=== PATIENT | female | born 1930 | race Caucasian/White ===

== ENCOUNTER 2021-05-16 17:51 | Outpatient (CLI) | payer MEDICARE, BC | END 2021-05-16 17:52 | disposition critical access hospital (66) | LOC: EMS 17:51 | DX: R42 Dizziness and giddiness (principal); R29.810 Facial weakness; I10 Essential (primary) hypertension | CPT/HCPCS: A0425; A0427 ==

== ENCOUNTER 2021-05-16 18:15 | Inpatient (IN) | payer MEDICARE, BC ==
--- NOTE | 2021-05-16 18:24 | ED Physician Documentation ---
PD HPI FOCAL NEURO - Stated complaint Stated Complaint: DIZZY/VERTIGO - History obtained from History obtained from: EMS - History of Present Illness Timing - details: Abrupt onset Weakness: Face, Arm, Hand, Leg, Foot, Left Numbness: No: Face, Arm, Hand, Leg, Foot, Right, Left, Other Contributing factors: positive: Anticoagulated, Atrial fibrillation Baseline status: positive: A&OX3, ambulatory, indep Recently seen: Not recently seen - Additional information Additional information: Patient is an 89-year-old female brought in by EMS for dizziness that started about an hour prior to arrival. She was at a restaurant with her family. EMS noticed a left-sided facial droop as well. Family did not notice this. Patient also appears to be having weakness of the left arm and leg. Patient lives in [place] and is visiting does have a history of atrial fibrillation and is on Eliquis. Unknown CODE STATUS. Review of Systems Unable to obtain: AMS, Confused PD PAST MEDICAL HISTORY - Past Medical History Cardiovascular: Hypertension, High cholesterol - Present Medications Home Medications: Ambulatory Orders Medication Instructions Recorded Confirmed Apixaban [Eliquis] 2.5 mg PO BID 05/16/21 05/16/21 Atorvastatin [Lipitor] 40 mg PO DAILY 05/16/21 05/16/21 Spironolactone [Aldactone] 12.5 mg PO DAILY 05/16/21 05/16/21 Torsemide 40 mg PO DAILY 05/16/21 05/16/21 Torsemide 60 mg PO QPM 05/16/21 05/16/21 carvediloL [Coreg] 12.5 mg PO BID 05/16/21 05/16/21 - Allergies Allergies/Adverse Reactions: Allergies Allergy/AdvReac Type Severity Reaction Status Date / Time No Known Drug Allergies Allergy Verified 05/16/21 18:23 - Living Situation Living Arrangement: reports: At home - Social History Does the pt have substance abuse?: No PD ED PE NORMAL - Vitals Vital signs reviewed: Yes - General General: No acute distress, Well developed/nourished, Other (Listing to the left, holding an emesis bag) - HEENT HEENT: PERRL, EOMI, Other (Mild left facial droop) - Neck Neck: Supple, no meningeal sign - Cardiac Cardiac: RRR - Respiratory Respiratory: No respiratory distress, Clear bilaterally - Abdomen Abdomen: Soft, Non tender, Non distended - Derm Derm: Warm and dry - Extremities Extremities: No calf tenderness / cord - Neuro Neuro: Other (Alert, oriented to person and place) Eye Opening: Spontaneous Motor: Obeys Commands Verbal: Confused GCS Score: 14 NIHSS - Time Time: 18:20 - Level of Consciousness Level of consciousness: (1) Not alert, but arousable by minor stimulation to obey, or answer LOC Questions: (2) Answers neither correct LOC Commands: (1) Performs one correctly - Gaze Best Gaze: (0) Normal - Visual Visual: (0) No loss - Facial Palsy Facial Palsy: (2) Partial paralysis - Motor Arms (both separate) Motor Arm (right): (0) No drift Motor Arm (left): (1) Drift - Motor Legs (both separate) Motor Leg (right): (0) No drift Motor Leg (left): (1) Drift - Limb Ataxia Limb Ataxia: (2) Present in 2 limbs - Sensory Sensory: (0) Normal - Best Language Best Language: (1) [id number] - Dysarthria Dysarthria: (0) Normal - Extinction and Inattention (formally neg Extinction and inattention: (0) No abnormality - Total Score/Results Total Score/Result: 11 Results - Vitals Vitals: Vital Signs - 24 hr 05/16/21 05/16/21 05/16/21 18:23 18:56 19:21 Temperature 36.6 C Heart Rate 100 91 91 Respiratory 18 22 20 Rate Blood Pressure 200/100 H 194/95 H 192/100 H O2 Saturation 93 98 97 05/16/21 05/16/21 05/16/21 19:51 20:21 20:30 Temperature Heart Rate 91 90 84 Respiratory 21 20 19 Rate Blood Pressure 185/85 H 190/93 H 192/88 H O2 Saturation 94 97 94 Oxygen O2 Source Room air - EKG (time done) 1847 Rate: Rate (enter#) (92) Rhythm: NSR [place]: Normal Intervals: Normal [place] QRS: LVH Ischemia: Q waves - Labs Labs: Laboratory Tests 05/16/21 05/16/21 05/16/21 18:45 18:56 18:56 WBC 4.5 L RBC 3.97 L Hgb 9.2 L Hct 30.0 L MCV 75.6 L MCH 23.2 L MCHC 30.7 L RDW 18.8 H Plt Count 156 MPV 8.5 Neut # (Auto) 3.2 Lymph # (Auto) 0.8 L Lamb # (Auto) 0.4 Eos # (Auto) 0.1 Baso # (Auto) 0.0 Absolute Nucleated RBC 0.00 Nucleated RBC % 0.0 PT 16.8 H INR 1.5 H Sodium Potassium Chloride Carbon Dioxide Anion Gap BUN Creatinine Estimated GFR (MDRD) Glucose POC Whole Bld Glucose 147 H Calcium Total Bilirubin AST ALT Alkaline Phosphatase Total Protein Albumin Globulin Albumin/Globulin Ratio Lipase Nasal Adenovirus (PCR) Nasal B. parapertussis DNA (PCR) Nasal Coronavir 229E PCR Nasal Coronavir HKU1 PCR Nasal Coronavir NL63 PCR Nasal Coronavir OC43 PCR Nasal Enterovir/Rhinovir PCR Nasal Influenza B PCR Nasal Influenza A PCR Nasal Parainfluen 1 PCR Nasal Parainfluen 2 PCR Nasal Parainfluen 3 PCR Nasal Parainfluen 4 PCR Nasal RSV (PCR) Nasal B.pertussis DNA PCR Nasal C.pneumoniae (PCR) Collins Human Metapneumo PCR Nasal M.pneumoniae (PCR) Nasal SARS-CoV-2 (PCR) 05/16/21 05/16/21 18:56 20:16 WBC RBC Hgb Hct MCV MCH MCHC RDW Plt Count MPV Neut # (Auto) Lymph # (Auto) Lamb # (Auto) Eos # (Auto) Baso # (Auto) Absolute Nucleated RBC Nucleated RBC % PT INR Sodium 135 Potassium 3.8 Chloride 103 Carbon Dioxide 21 Anion Gap 11.0 BUN 47 H Creatinine 1.7 H Estimated GFR (MDRD) 28 L Glucose 145 H POC Whole Bld Glucose Calcium 9.0 Total Bilirubin 0.7 AST 28 ALT 19 Alkaline Phosphatase 159 H Total Protein 8.1 Albumin 3.3 Globulin 4.8 H Albumin/Globulin Ratio 0.7 L Lipase 44 Nasal Adenovirus (PCR) NOT DETECTED Nasal B. parapertussis DNA (PCR) NOT DETECTED Nasal Coronavir 229E PCR NOT DETECTED Nasal Coronavir HKU1 PCR NOT DETECTED Nasal Coronavir NL63 PCR NOT DETECTED Nasal Coronavir OC43 PCR NOT DETECTED Nasal Enterovir/Rhinovir PCR NOT DETECTED Nasal Influenza B PCR NOT DETECTED Nasal Influenza A PCR NOT DETECTED Nasal Parainfluen 1 PCR NOT DETECTED Nasal Parainfluen 2 PCR NOT DETECTED Nasal Parainfluen 3 PCR NOT DETECTED Nasal Parainfluen 4 PCR NOT DETECTED Nasal RSV (PCR) NOT DETECTED Nasal B.pertussis DNA PCR NOT DETECTED Nasal C.pneumoniae (PCR) NOT DETECTED Collins Human Metapneumo PCR NOT DETECTED Nasal M.pneumoniae (PCR) NOT DETECTED Nasal SARS-CoV-2 (PCR) NOT DETECTED - Rads (name of study) head CT Radiology: Final report received, EMP read contemporaneously, See rad report (No acute abnormality) PD MEDICAL DECISION MAKING - ED course Complexity details: reviewed results, re-evaluated patient, considered differential, d/w patient, d/w family, d/w employee relations consultant ED course: 89-year-old female, initial history was limited, but did appear to be in a TPA window. She is on Eliquis. Dr. Mueller, neurology was consulted via telestroke. States that she would not be a interventional TPA candidate or a TPA candidate. Does not recommend angiograms at this time as they would not record changer. Family states that she is DNR. There is a question on if she has metastatic adenocarcinoma with mets to the liver, had considered hospice and palliative care recently according to notes in [facility] that the neurologist was reading. We will admit the patient for an MRI in the morning to see where the stroke occurred for prognostic value. Discussed the case with Dr. Frost, hospitalist who accepts This document was made in part using voice recognition software. While efforts are made to proofread this document, sound alike and grammatical errors may occur. Departure - Departure Disposition: [facility] Clinical Impression: Stroke-like symptoms Condition: Stable Discharge Date/Time: 05/16/21 22:09
--- NOTE | 2021-05-16 18:58 | CT Report ---
PROCEDURE: Head W/O Stroke Protocol INDICATIONS: L facial droop, falling TECHNIQUE: Noncontrast 4.5 mm thick angled axial sections acquired from the foramen magnum to the vertex, with c oronal reformats. For radiation dose reduction, the following was used: automated exposure control, adjustment of mA and/or kV according to patient size. COMPARISON: FINDINGS: Image quality: Excellent. CSF spaces: Basal cisterns are patent. No extra-axial fluid collections. Ventricles are symmetric in size and shape. Brain: No midline shift. No intracranial masses or hemorrhage. There is mild generalized age-relate d cerebral and cerebellar volume loss. Scattered hypodensities in the subcortical and periventricular white matter are most commonly seen in the setting of chronic microvascular ischemic changes. No foc al loss of white matter differentiation is identified. Intracranial atherosclerotic calcifications ar e present. Skull and face: Calvarium and visualized facial bones are intact, without suspicious lesions. Sinuses: The visualized paranasal sinuses are clear. There is opacification of the right mastoid air cells. No mass is seen in the included right nasopharynx. IMPRESSION: 1. No acute intracranial abnormality. 2. Mild to moderate chronic microvascular ischemic changes. Mild age-related cerebral volume loss. 3. Opacification of the right mastoid air cells. Recommend correlation for mastoiditis. Findings were discussed with the referring physician, Dr. Salas, by telephone on 05/16/2021 at 6:55 P M. This study fulfills neurological imaging criteria for inclusion or exclusion of acute stroke therapie s based on available published neurological imaging guidelines. Reviewed by: Tru Yousif MD on 05/16/2021 6:57 PM PDT Approved by: Tru Yousif MD on 05/16/2021 6:57 PM PDT Station ID: [id number]
[2021-05-16 19:01] LABS: BASOPHILS % (AUTO) 0.7 %; EOSINOPHILS # (AUTO) 0.1 10^3/uL (0.0-0.7); EOSINOPHILS % (AUTO) 3.1 %; HGB - HEMOGLOBIN 9.2 g/dL (12.0-16.0); LYMPHOCYTES # (AUTO) 0.8 10^3/uL (1.5-3.5); LYMPHOCYTES % (AUTO) 17.3 %; MEAN CORPUSCULAR HEMOGLOBIN 23.2 pg (27.0-31.0); MEAN CORPUSCULAR HGB CONC 30.7 g/dL (32.0-36.0); MEAN CORPUSCULAR VOLUME 75.6 fL (81.0-99.0); MEAN PLATELET VOLUME 8.5 fL (7.9-10.8); MONOCYTES # (AUTO) 0.4 10^3/uL (0.0-1.0); MONOCYTES % (AUTO) 7.7 %; NEUTROPHILS # (AUTO) 3.2 10^3/uL (1.5-6.6); NEUTROPHILS % (AUTO) 70.8 %; PLT - PLATELET COUNT 156 10^3/uL (130-450); RED BLOOD COUNT 3.97 10^6/uL (4.20-5.40); RED CELL DISTRIBUTION WIDTH 18.8 % (12.0-15.0); WHITE BLOOD COUNT 4.5 x10^3/uL (4.8-10.8)
[2021-05-16 19:15] LABS: ALBUMIN 3.3 g/dL (3.2-5.5); ALBUMIN/GLOBULIN RATIO 0.7 (1.0-2.2); BILIRUBIN,TOTAL 0.7 mg/dL (0.2-1.0); CREATININE 1.7 mg/dL (0.4-1.0); POTASSIUM 3.8 mmol/L (3.5-5.0); TOTAL PROTEIN 8.1 g/dL (6.7-8.2)
[2021-05-16 19:18] LABS: INR 1.5 (0.8-1.2); PT - PROTHROMBIN TIME 16.8 secs (9.9-12.6)
[2021-05-16 21:14] LABS: B. PARAPERTUSSIS- RESP PCR PAN NOT DETECTED; B. PERTUSSIS- RESP PCR PANEL NOT DETECTED; C. PNEUMONIAE- RESP PCR PANEL NOT DETECTED; CORONAVIRUS 229E-RESP PCR NOT DETECTED; CORONAVIRUS HKU1-RESP PCR NOT DETECTED; CORONAVIRUS NL63-RESP PCR NOT DETECTED; CORONAVIRUS OC43-RESP PCR NOT DETECTED; HUMAN METAPNEUMOVIRUS NOT DETECTED; INFLUENZA A- RESP PCR PANEL NOT DETECTED; INFLUENZA B - RESP PCR PANEL NOT DETECTED; M. PNEUMONIAE- RESP PCR PANEL NOT DETECTED; PARAINFLUENZA VIRUS 1 NOT DETECTED; PARAINFLUENZA VIRUS 2 NOT DETECTED; PARAINFLUENZA VIRUS 3 NOT DETECTED; PARAINFLUENZA VIRUS 4 NOT DETECTED; RHINOVIRUS/ENTEROVIRUS NOT DETECTED; RSV- RESP PCR PANEL NOT DETECTED; SARS-CoV-2 -RESP PCR PANEL NOT DETECTED
[2021-05-16] MEDS ORDERED: ACETAMINOPHEN 325 MG TABLET PO PRN (21:16)
[2021-05-16] MEDS ORDERED: SODIUM CHLORIDE FLUSH 0.9% 10 ML SYRINGE IVP PRN (21:16)
[2021-05-16] MEDS ORDERED: ONDANSETRON 4 MG/2 ML VIAL IVP PRN (21:16)
--- NOTE | 2021-05-16 21:42 | HISTORY & PHYSICAL EXAMINATION ---
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 Medical records are not available therefore patient's history and background was described by her daughter. The patient presented to [facility] ER by ambulance around 5:30 PM with focal neurologic abnormalities/likely with cerebrovascular accident. The daughter reported that they had a day trip, drove to [facility] [place] came over by [place]. They were having dinner around 5:30 PM when the patient was noted fainting, she had decreased level of consciousness. She was not able to swallow water, was leaning to the left, became clammy and had very noticeable left facial droop and left-sided arm and leg weakness. Upon presentation to the ER NIH stroke scale was 11. CT scan of the brain did not show acute abnormality. There were laboratory abnormalities which are included below. Case was discussed with covering teleneurologist who recommended admission for stroke work-up which would include MRI and echocardiogram. No CT angiography was recommended as the patient would not be a candidate for any intervention based on her background, anticoagulation and history. Advance care planning discussion was started. Patient's background, chronic medical problems, functional status, current symptoms and work-up were discussed in detail. Patient's primary decision maker is her daughter who was at the bedside. She is an recycling technician and understood the context. She stated that her mother should be treated mainly according to comfort. She wishes no escalation of the care and details of care plan are listed at assessment and plan. Past medical history: Family provided past medical history, no medical records available Hyperlipidemia Hypertension Atrial fibrillation Eliquis anticoagulation for A. 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 Allergies Allergy/AdvReac Type Severity Reaction Status Date / Time No Known Drug Allergies Allergy Verified 05/16/21 18:23 Outpatient medications: Apixaban [Eliquis] 2.5 mg PO BID 05/16/21 Atorvastatin [Lipitor] 40 mg PO DAILY 05/16/21 Spironolactone [Aldactone] 12.5 mg PO DAILY 05/16/21 Torsemide 40 mg PO DAILY 05/16/21 Torsemide 60 mg PO QPM 05/16/21 carvediloL [Coreg] 12.5 mg PO BID 05/16/21 Family history: Patient cannot recall chronic medical conditions in first-degree relatives Social history and functional status: The patient lives with family members, she ambulates with a walker; her daughter is an recycling technician and she understands context of medical care and decision making. They came to [facility] to have a day trip, they traveled from [place]. As baseline the patient requires assistance from family with most activities however she could do basic ADLs such as dressing and eating. Gets some health help with bathing. CODE STATUS: DNR/ Comfort focused care Review of symptoms: 12 point review done, pertinent positives and negatives listed above at history present illness, there was no additional positive. Vital Signs - 8 hr 05/16/21 05/16/21 05/16/21 18:23 18:56 19:21 Temperature 36.6 C Heart Rate 100 91 91 Heart Rate [ Radial] Respiratory 18 22 20 Rate Blood Pressure 200/100 H 194/95 H 192/100 H Blood Pressure [Right Brachial artery] O2 Saturation 93 98 97 Physical exam: General: Well-developed frail elderly female, laying in bed without acute distress, daughter at bedside HEENT: Dry oral mucosa Respiratory: No increased work of breathing, comfortable on supplemental oxygen; good air entry throughout, however gurgly cough during the exam CVS: S1, S2, regular rate and rhythm at the time of my exam Abdomen: Benign abdomen, bowel tones present, nontender, nondistended Neurologic: Left-sided facial droop involving the entire face from the forehead to the chin, left-sided weakness however could move all 4 extremities against gravity, slow speech Psych: Lethargic, cooperative Lymph: No edema Skin: Pallor Musculoskeltal: Thin, frail, with visible ribs and temporal wasting, no fat pads Laboratories and imaging reviewed per electronic medical record. Laboratory Tests 05/16/21 05/16/21 05/16/21 18:45 18:56 18:56 WBC 4.5 L RBC 3.97 L Hgb 9.2 L Hct 30.0 L MCV 75.6 L MCH 23.2 L MCHC 30.7 L RDW 18.8 H Plt Count 156 MPV 8.5 Neut # (Auto) 3.2 Lymph # (Auto) 0.8 L Harney # (Auto) 0.4 Eos # (Auto) 0.1 Baso # (Auto) 0.0 Absolute Nucleated RBC 0.00 Nucleated RBC % 0.0 PT 16.8 H INR 1.5 H Sodium Potassium Chloride Carbon Dioxide Anion Gap BUN Creatinine Estimated GFR (MDRD) Glucose POC Whole Bld Glucose 147 H Calcium Total Bilirubin AST ALT Alkaline Phosphatase Total Protein Albumin Globulin Albumin/Globulin Ratio Lipase Nasal Adenovirus (PCR) Nasal B. parapertussis DNA (PCR) Nasal Coronavir 229E PCR Nasal Coronavir HKU1 PCR Nasal Coronavir NL63 PCR Nasal Coronavir OC43 PCR Nasal Enterovir/Rhinovir PCR Nasal Influenza B PCR Nasal Influenza A PCR Nasal Parainfluen 1 PCR Nasal Parainfluen 2 PCR Nasal Parainfluen 3 PCR Nasal Parainfluen 4 PCR Nasal RSV (PCR) Nasal B.pertussis DNA PCR Nasal C.pneumoniae (PCR) Collins Human Metapneumo PCR Nasal M.pneumoniae (PCR) Nasal SARS-CoV-2 (PCR) 05/16/21 05/16/21 18:56 20:16 WBC RBC Hgb Hct MCV MCH MCHC RDW Plt Count MPV Neut # (Auto) Lymph # (Auto) [place]ney # (Auto) Eos # (Auto) Baso # (Auto) Absolute Nucleated RBC Nucleated RBC % PT INR Sodium 135 Potassium 3.8 Chloride 103 Carbon Dioxide 21 Anion Gap 11.0 BUN 47 H Creatinine 1.7 H Estimated GFR (MDRD) 28 L Glucose 145 H POC Whole Bld Glucose Calcium 9.0 Total Bilirubin 0.7 AST 28 ALT 19 Alkaline Phosphatase 159 H Total Protein 8.1 Albumin 3.3 Globulin 4.8 H Albumin/Globulin Ratio 0.7 L Lipase 44 Nasal Adenovirus (PCR) NOT DETECTED Nasal B. parapertussis DNA (PCR) NOT DETECTED Nasal Coronavir 229E PCR NOT DETECTED Nasal Coronavir HKU1 PCR NOT DETECTED Nasal Coronavir NL63 PCR NOT DETECTED Nasal Coronavir OC43 PCR NOT DETECTED Nasal Enterovir/Rhinovir PCR NOT DETECTED Nasal Influenza B PCR NOT DETECTED Nasal Influenza A PCR NOT DETECTED Nasal Parainfluen 1 PCR NOT DETECTED Nasal Parainfluen 2 PCR NOT DETECTED Nasal Parainfluen 3 PCR NOT DETECTED Nasal Parainfluen 4 PCR NOT DETECTED Nasal RSV (PCR) NOT DETECTED Nasal B.pertussis DNA PCR NOT DETECTED Nasal C.pneumoniae (PCR) NOT DETECTED Collins Human Metapneumo PCR NOT DETECTED Nasal M.pneumoniae (PCR) NOT DETECTED Nasal SARS-CoV-2 (PCR) NOT DETECTED Assessment and plan: Active issues/diagnoses Focal neurologic deficits secondary to cerebrovascular accident or metastatic brain disease Hypertension Aspiration risk Renal failure, no baseline creatinine available Paroxysmal atrial fibrillation Therapeutic anticoagulation on Eliquis Advanced age, multiple chronic medical problems/DO NOT RESUSCITATE CODE STATUS with comfort focused care Recent work-up for adenocarcinoma of the colon raise the possibility of liver metastasis Anemia/neutropenia/coagulopathy/on Eliquis anticoagulation/no bleeding complication or history reported Plan and orders: Admitted as inpatient Permissive hypertension however restarting home dose of Coreg as the benefit to continue beta-davi to avoid A. fib RVR overweighs benefit of higher blood pressures, will aim to have a blood pressure goal around 160s Nursing swallow screen and dysphagia diet overnight; patient and daughter understand the aspiration risk, due to CODE STATUS limitation they request to continue with diet and have swallow evaluation completed Supplemental oxygen IV hydration, hold diuretics Regarding further work-up which was recommended by teleneurology, the daughter stated that they would not want to have repeat echocardiogram as the patient had several echoes in the past, regarding MRI as there might not be therapeutic consequence due to CODE STATUS limitation, for now the daughter requests not to order an MR; she will discuss with other family members whether they wish to perform MRI with diagnostic purpose on the second hospital day It was discussed that having an MRI of the brain to decide whether the patient had a stroke or has brain metastasis would provide valuable information, which might help with decision-making Regarding CODE STATUS goals of care and level of care per our discussion patient will be admitted to receive nursing care, swallow evaluation, PT OT evaluation and help with discharge planning, primary goal will be comfort focused care, therefore no telemetry monitoring will be ordered Regarding therapeutic anticoagulation on Eliquis the patient specifically requested to continue with that, if she would have brain metastasis from colon cancer at some point continuing full dose anticoagulation might be more risk than benefit, this issue was discussed and for now the daughter and the patient wanted us to continue Eliquis Bleeding risk was discussed in light of renal failure, malnutrition, brain abnormality, in the context of comfort care, at some point anticoagulation should be discontinued as the bleeding risk will overweigh the benefit DNR In light of anemia and therapeutic anticoagulation will check stool for occult blood Attestation: I certify that the patient meets inpatient criteria based on the admission diagnosis, and the above assessment, findings and plan; she is expected to be hospitalized for more than 48 hours however to discharge or transfer to other facility within less than 96 hours. Time: 65 minutes spent on admission, level 3 visit
[2021-05-16] MEDS ORDERED: D5NS W IV SCH (22:00)
[2021-05-16] MEDS ORDERED: KCL IV SCH (22:00)
[2021-05-17] MEDS ORDERED: METOPROLOL 5 MG/5 ML VIAL IVP STA (00:09)
[2021-05-17] MEDS: carvediloL 12.5 MG TABLET PO SCH ×3 (00:13→20:53)
[2021-05-17] MEDS: SODIUM CHLORIDE FLUSH 0.9% 10 ML SYRINGE IVP SCH ×3 (00:30→16:59)
[2021-05-17 04:51] LABS: BASOPHILS % (AUTO) 0.2 %; EOSINOPHILS % (AUTO) 0.2 %; HCT - HEMATOCRIT 31.5 % (37.0-47.0); HGB - HEMOGLOBIN 9.4 g/dL (12.0-16.0); LYMPHOCYTES # (AUTO) 0.7 10^3/uL (1.5-3.5); LYMPHOCYTES % (AUTO) 16.7 %; MEAN CORPUSCULAR HEMOGLOBIN 22.7 pg (27.0-31.0); MEAN CORPUSCULAR HGB CONC 29.8 g/dL (32.0-36.0); MEAN CORPUSCULAR VOLUME 76.1 fL (81.0-99.0); MEAN PLATELET VOLUME 8.7 fL (7.9-10.8); MONOCYTES # (AUTO) 0.2 10^3/uL (0.0-1.0); NEUTROPHILS # (AUTO) 3.3 10^3/uL (1.5-6.6); NEUTROPHILS % (AUTO) 77.4 %; PLT - PLATELET COUNT 150 10^3/uL (130-450); RED BLOOD COUNT 4.14 10^6/uL (4.20-5.40); RED CELL DISTRIBUTION WIDTH 18.9 % (12.0-15.0); WHITE BLOOD COUNT 4.2 x10^3/uL (4.8-10.8)
[2021-05-17 04:58] LABS: CALCIUM 9.1 mg/dL (8.5-10.3); CREATININE 1.6 mg/dL (0.4-1.0); POTASSIUM 4.1 mmol/L (3.5-5.0)
[2021-05-17 07:39] LABS: BILIRUBIN,URINE NEGATIVE (NEGATIVE); GLUCOSE, URINE (UA) NEGATIVE (NEGATIVE); KETONES,URINE (UA) NEGATIVE (NEGATIVE); LEUKOCYTE ESTERASE, URINE LARGE (NEGATIVE); NITRITE,URINE NEGATIVE (NEGATIVE); OCCULT BLOOD,URINE LARGE (NEGATIVE); PH,URINE 8.5 PH (5.0-7.5); PROTEIN,URINE 100 mg/dL (NEGATIVE); UROBILINOGEN,URINE 0.2 (NORMAL) E.U./dL (NORMAL)
[2021-05-17 07:40] LABS: CLARITY,URINE CLOUDY (CLEAR)
[2021-05-17 07:53] LABS: AMORPHOUS SEDIMENT,UR Moderate /LPF; BACTERIA,URINE Many /HPF (None Seen); RBC,URINE TNTC /HPF (0-5); SQUAMOUS EPITHELIAL CELL,UR NONE SEEN (<= Few); WBC,URINE >25 /HPF (0-5)
[2021-05-17] MEDS ORDERED: carvediloL 12.5 MG TABLET PO SCH (09:00)
--- NOTE | 2021-05-17 09:10 | PHARMACY PROGRESS NOTE ---
- Best Possible Medication History Admit Date and Time: 05/16/212115 Processed by: Pharmacy Medication History completed: Yes Patient Interview: Pt unable to participate Secondary Source(s): Pharmacy records, Insurance records As the person ultimately responsible for medication therapy, providers are able to order a medication from an existing home medication list in [facility] via the "Reconcile Routine" prior to Confirmation of that medication by arch support technician. Such practice is discouraged except when the physician, in their clinical judgment, deems that a medical need exists for a medication without regard to previous use.
[2021-05-17] MEDS ORDERED: GADOBUTROL 7.5 MMOL/7.5 ML VIAL ONE (12:41)
[2021-05-17] MEDS: GADOBUTROL 7.5 MMOL/7.5 ML VIAL IVP ONE (12:50)
[2021-05-17] MEDS: APIXABAN 2.5 MG TABLET PO SCH ×2 (13:54→20:53)
[2021-05-17] MEDS: ATORVASTATIN 40 MG TABLET PO SCH (13:54)
--- NOTE | 2021-05-17 14:54 | MRI Report ---
PROCEDURE: Brain W/WO INDICATIONS: brain mets CONTRAST: IV CONTRAST: Gadavist ml: 4 TECHNIQUE: Noncontrast axial T1 spin echo, axial T2 fast spin echo, sagittal and axial FLAIR, coronal T2 fast sp in echo, axial gradient echo, axial diffusion and ADC through the brain. After the administration of contrast, axial and coronal T1 spin echo with fat saturation through the brain. COMPARISON: Head CT dated 05/16/2021. FINDINGS: Image quality: Excellent. CSF spaces: Basal cisterns are patent. No extra-axial fluid collections. Ventricles are normal in size and shape. Brain: Diffusion-weighted images demonstrate a moderate acute inferior left cerebellar hemisphere in farct, consistent with a posterior inferior cerebellar artery distribution infarct. There is addition ally infarct extending into the left lateral medulla. Associated cytotoxic edema is noted. No acute h emorrhage. No mass is identified. No midline shift. No intracranial bleeds or masses. No abnormal i ntracranial enhancement. There is cerebral volume loss for age. There is severe periventricular whi te matter chronic small vessel ischemic change. The brainstem appears normal. No chronic ischemic i nsults. Normal intravascular flow voids are present. Skull and face: Calvarial marrow is normal in signal. Orbits appear normal. Sinuses: Sinuses and mastoids appear clear. IMPRESSION: 1. Age-related volume loss and severe small vessel ischemic change. 2. 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 The cere bellar infarct is in the left posterior inferior cerebellar artery territory. This is nonhemorrhagic. There is subglottic edema without significant mass effect on the ventricular system. 3. No evidence of hemorrhage. Reviewed by: Hardy Tovar MD on 05/17/2021 2:53 PM PDT Approved by: Hardy Tovar MD on 05/17/2021 2:53 PM PDT Station ID: [id number]
--- NOTE | 2021-05-17 16:31 | PROVIDER PROGRESS NOTE ---
Subjective - Prog Note Date Prog Note Date: 05/17/21 Prog Note Time: 16:27 - Subjective Subjective: She has been more alert today. Over the course of the day she has been evaluated by speech pathology and she is choking on water. As such she is n.p.o. for right now. The daughter who is with her and is her advocate is expressing they do desire further treatment at this point in time. Everything we do is a [id number] request for the family. They did not want an echocardiogram. But they did allow an MRI. Because she is no longer able to swallow, they want a PEG feeding tube in place. They want this in place before she is discharged. As soon as the PEG is placed they would like to take her home. They would like home health with physical t herapy, speech therapy and Occupational Therapy. If the patient cannot get a PEG tube here, they want her transferred to [facility] and have given me the number of Shanika Shelton Her oncologist. I did call Dr. 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 As far as her office is concerned, she is no longer getting active treatment. And they were sorry but would not be able to help in this current episode of care at this time. As such I went back to the daughter to explain the doctor Would not be able to facility transfer to . The daughter asked again if mom can get a PEG tube befor discharge here and I contacted Dr. Renetta Castano says that she is willing to put in a PEG tube tomorrow at 3:00 in the afternoon. The MRI does confirm an acute infarct involving the inferior left cerebellar hemisphere in the left lateral medulla. The cerebellar infarct is in the left posterior inferior cerebellar artery distribution. Nonhemorrhagic. Subglottic edema without significant mass-effect on the ventricular system. Current Medications - Current Medications Current Medications: Active Medications Acetaminophen (Acetaminophen 325 Mg Tablet) 650 mg PO Q4HR PRN PRN Reason: Pain 1 to 4 Apixaban (Apixaban 2.5 Mg Tablet) 2.5 mg PO BID [facility] Last Admin: 05/17/21 13:54 Dose: Not Given Documented by: Atorvastatin Calcium (Atorvastatin 40 Mg Tablet) 40 mg PO DAILY [facility] Last Admin: 05/17/21 13:54 Dose: Not Given Documented by: Carvedilol (Carvedilol 12.5 Mg Tablet) 12.5 mg PO BID [facility] Last Admin: 05/17/21 13:55 Dose: Not Given Documented by: Lactated Ringer's (Lr) 1,000 mls @ 83.333 mls/hr IV .Q12H [facility] Ondansetron HCl (Ondansetron 4 Mg/2 Ml Vial) 4 mg IVP Q6HR PRN PRN Reason: Nausea / Vomiting Last Admin: 05/17/21 08:22 Dose: 4 mg Documented by: Sodium Chloride (Sodium Chloride Flush 0.9% 10 Ml Syringe) 10 ml IVP PRN PRN PRN Reason: NEEDED PER PROVIDER ORDERS Sodium Chloride (Sodium Chloride Flush 0.9% 10 Ml Syringe) 10 ml IVP 0100,0900,1700 [facility] Last Admin: 05/17/21 09:00 Dose: 10 ml Documented by: Apixaban [Eliquis] 2.5 mg PO BID 05/16/21 Spironolactone [Aldactone] 12.5 mg PO DAILY 05/16/21 Torsemide 40 mg PO DAILY 05/16/21 carvediloL [Coreg] 12.5 mg PO BID 05/16/21 Atorvastatin Calcium 40 mg PO QPM 05/17/21 Torsemide 40 mg PO 1400 05/17/21 Torsemide 60 mg PO DAILY 05/17/21 Objective - Vital Signs/Intake & Output Reviewed Vital Signs: Yes Vital Signs: Vital Signs x48h Temp Pulse Pulse Pulse Resp BP BP 05/17/21 16:23 36.1 C L 05/17/21 15:54 34.5 C L 96 22 168/75 H 05/17/21 14:20 95 96 164/72 H BP Pulse Ox 05/17/21 16:23 05/17/21 15:54 98 05/17/21 14:20 163/82 H Intake & Output: Intake & Output 05/14/21 05/15/21 05/16/21 05/17/21 23:59 23:59 23:59 23:59 Intake Total 0 250 Output Total 350 650 Balance -350 -400 - Objective General Appearance: positive: Alert, Other (Facial droop and left gaze drift, Very frail-appearing elderly female) Eyes Bilateral: positive: PERRL. negative: EOMI Eyes: OU Conjunctivae pale (Conjunctiva looks stretched, red and boggy) ENT: positive: No signs of dehydration Neck: positive: No JVD Respiratory: positive: No respiratory distress, Rhonchi Cardiovascular: positive: Regular rate & rhythm, Systolic murmur. negative: Gallop/S4, Friction rub Abdomen: positive: Non-tender, No organomegaly, Nml bowel sounds, No distention, Other (Unable to swallow without coughing and sputtering) Skin: positive: Warm, Dry, Pallor Extremities: positive: No pedal edema. negative: Full ROM Neurologic/Psychiatric: positive: Oriented x3. negative: CN's nml (2-12), Motor nml (Extraocular movements with left gaze deviation, slight right facial droop, partial expressive aphasia, dysphagia, slight right arm weakness. Fatigues very quickly with standing and has terrible balance with retropulsion.) - Lab Results Fish Bones: 05/17/21 04:36 05/17/21 04:36 Other Labs: Lab Results x24hrs 05/17/21 05/17/21 05/17/21 Range/Units 06:57 04:36 04:36 WBC 4.2 L (4.8-10.8) x10^3/uL RBC 4.14 L (4.20-5.40) 10^6/uL Hgb 9.4 L (12.0-16.0) g/dL Hct 31.5 L (37.0-47.0) % MCV 76.1 L (81.0-99.0) fL MCH 22.7 L (27.0-31.0) pg MCHC 29.8 L (32.0-36.0) g/dL RDW 18.9 H (12.0-15.0) % Plt Count 150 (130-450) 10^3/uL MPV 8.7 (7.9-10.8) fL Neut # (Auto) 3.3 (1.5-6.6) 10^3/uL Lymph # (Auto) 0.7 L (1.5-3.5) 10^3/uL [place] # (Auto) 0.2 (0.0-1.0) 10^3/uL Eos # (Auto) 0.0 (0.0-0.7) 10^3/uL Baso # (Auto) 0.0 (0.0-0.1) 10^3/uL Absolute Nucleated RBC 0.00 x10^3/uL Nucleated RBC % 0.0 /100WBC PT (9.9-12.6) secs INR (0.8-1.2) Sodium 136 (135-145) mmol/L Potassium 4.1 (3.5-5.0) mmol/L Chloride 102 (101-111) mmol/L Carbon Dioxide 22 (21-32) mmol/L Anion Gap 12.0 (6-13) BUN 44 H (6-20) mg/dL Creatinine 1.6 H (0.4-1.0) mg/dL Estimated GFR (MDRD) 30 L (>89) Glucose 128 H (70-100) mg/dL POC Whole Bld Glucose (70 - 100) mg/dL Calcium 9.1 (8.5-10.3) mg/dL Total Bilirubin (0.2-1.0) mg/dL AST (10-42) IU/L ALT (10-60) IU/L Alkaline Phosphatase (42-121) IU/L Total Protein (6.7-8.2) g/dL Albumin (3.2-5.5) g/dL Globulin (2.1-4.2) g/dL Albumin/Globulin Ratio (1.0-2.2) Lipase (22-51) U/L Urine Color BROWN Urine Clarity CLOUDY (CLEAR) Urine pH 8.5 H (5.0-7.5) PH Ur Specific [place] 1.020 (1.002-1.030) Urine Protein 100 H (NEGATIVE) mg/dL Urine Glucose (UA) NEGATIVE (NEGATIVE) mg/dL Urine Ketones NEGATIVE (NEGATIVE) mg/dL Urine Occult Blood LARGE H (NEGATIVE) Urine Nitrite NEGATIVE (NEGATIVE) Urine Bilirubin NEGATIVE (NEGATIVE) Urine Urobilinogen 0.2 (NORMAL) (NORMAL) E.U./dL Ur Leukocyte Esterase LARGE H (NEGATIVE) Urine RBC TNTC H (0-5) /HPF Urine WBC >25 H (0-5) /HPF Ur Squamous Epith Cells NONE SEEN (<= Few) Amorphous Sediment Moderate /LPF Urine Bacteria Many H (None Seen) /HPF Urine Culture Comments INDICATED Nasal Adenovirus (PCR) Nasal B. parapertussis DNA (PCR) Nasal Coronavir 229E PCR Nasal Coronavir HKU1 PCR Nasal Coronavir NL63 PCR Nasal Coronavir OC43 PCR Nasal Enterovir/Rhinovir PCR Nasal Influenza B PCR Nasal Influenza A PCR Nasal Parainfluen 1 PCR Nasal Parainfluen 2 PCR Nasal Parainfluen 3 PCR Nasal Parainfluen 4 PCR Nasal RSV (PCR) Nasal B.pertussis DNA PCR Nasal C.pneumoniae (PCR) Collins Human Metapneumo PCR Nasal M.pneumoniae (PCR) Nasal SARS-CoV-2 (PCR) 05/16/21 05/16/21 05/16/21 Range/Units 20:16 18:56 18:56 WBC (4.8-10.8) x10^3/uL RBC (4.20-5.40) 10^6/uL Hgb (12.0-16.0) g/dL Hct (37.0-47.0) % MCV (81.0-99.0) fL MCH (27.0-31.0) pg MCHC (32.0-36.0) g/dL RDW (12.0-15.0) % Plt Count (130-450) 10^3/uL MPV (7.9-10.8) fL Neut # (Auto) (1.5-6.6) 10^3/uL Lymph # (Auto) (1.5-3.5) 10^3/uL [place] # (Auto) (0.0-1.0) 10^3/uL Eos # (Auto) (0.0-0.7) 10^3/uL Baso # (Auto) (0.0-0.1) 10^3/uL Absolute Nucleated RBC x10^3/uL Nucleated RBC % /100WBC PT 16.8 H (9.9-12.6) secs INR 1.5 H (0.8-1.2) Sodium 135 (135-145) mmol/L Potassium 3.8 (3.5-5.0) mmol/L Chloride 103 (101-111) mmol/L Carbon Dioxide 21 (21-32) mmol/L Anion Gap 11.0 (6-13) BUN 47 H (6-20) mg/dL Creatinine 1.7 H (0.4-1.0) mg/dL Estimated GFR (MDRD) 28 L (>89) Glucose 145 H (70-100) mg/dL POC Whole Bld Glucose (70 - 100) mg/dL Calcium 9.0 (8.5-10.3) mg/dL Total Bilirubin 0.7 (0.2-1.0) mg/dL AST 28 (10-42) IU/L ALT 19 (10-60) IU/L Alkaline Phosphatase 159 H (42-121) IU/L Total Protein 8.1 (6.7-8.2) g/dL Albumin 3.3 (3.2-5.5) g/dL Globulin 4.8 H (2.1-4.2) g/dL Albumin/Globulin Ratio 0.7 L (1.0-2.2) Lipase 44 (22-51) U/L Urine Color Urine Clarity (CLEAR) Urine pH (5.0-7.5) PH Ur Specific [place] (1.002-1.030) Urine Protein (NEGATIVE) mg/dL Urine Glucose (UA) (NEGATIVE) mg/dL Urine Ketones (NEGATIVE) mg/dL Urine Occult Blood (NEGATIVE) Urine Nitrite (NEGATIVE) Urine Bilirubin (NEGATIVE) Urine Urobilinogen (NORMAL) E.U./dL Ur Leukocyte Esterase (NEGATIVE) Urine RBC (0-5) /HPF Urine WBC (0-5) /HPF Ur Squamous Epith Cells (<= Few) Amorphous Sediment /LPF Urine Bacteria (None Seen) /HPF Urine Culture Comments Nasal Adenovirus (PCR) NOT DETECTED Nasal B. parapertussis DNA (PCR) NOT DETECTED Nasal Coronavir 229E PCR NOT DETECTED Nasal Coronavir HKU1 PCR NOT DETECTED Nasal Coronavir NL63 PCR NOT DETECTED Nasal Coronavir OC43 PCR NOT DETECTED Nasal Enterovir/Rhinovir PCR NOT DETECTED Nasal Influenza B PCR NOT DETECTED Nasal Influenza A PCR NOT DETECTED Nasal Parainfluen 1 PCR NOT DETECTED Nasal Parainfluen 2 PCR NOT DETECTED Nasal Parainfluen 3 PCR NOT DETECTED Nasal Parainfluen 4 PCR NOT DETECTED Nasal RSV (PCR) NOT DETECTED Nasal B.pertussis DNA PCR NOT DETECTED Nasal C.pneumoniae (PCR) NOT DETECTED Collins Human Metapneumo PCR NOT DETECTED Nasal M.pneumoniae (PCR) NOT DETECTED Nasal SARS-CoV-2 (PCR) NOT DETECTED 05/16/21 05/16/21 Range/Units 18:56 18:45 WBC 4.5 L (4.8-10.8) x10^3/uL RBC 3.97 L (4.20-5.40) 10^6/uL Hgb 9.2 L (12.0-16.0) g/dL Hct 30.0 L (37.0-47.0) % MCV 75.6 L (81.0-99.0) fL MCH 23.2 L (27.0-31.0) pg MCHC 30.7 L (32.0-36.0) g/dL RDW 18.8 H (12.0-15.0) % Plt Count 156 (130-450) 10^3/uL MPV 8.5 (7.9-10.8) fL Neut # (Auto) 3.2 (1.5-6.6) 10^3/uL Lymph # (Auto) 0.8 L (1.5-3.5) 10^3/uL [place] # (Auto) 0.4 (0.0-1.0) 10^3/uL Eos # (Auto) 0.1 (0.0-0.7) 10^3/uL Baso # (Auto) 0.0 (0.0-0.1) 10^3/uL Absolute Nucleated RBC 0.00 x10^3/uL Nucleated RBC % 0.0 /100WBC PT (9.9-12.6) secs INR (0.8-1.2) Sodium (135-145) mmol/L Potassium (3.5-5.0) mmol/L Chloride (101-111) mmol/L Carbon Dioxide (21-32) mmol/L Anion Gap (6-13) BUN (6-20) mg/dL Creatinine (0.4-1.0) mg/dL Estimated GFR (MDRD) (>89) Glucose (70-100) mg/dL POC Whole Bld Glucose 147 H (70 - 100) mg/dL Calcium (8.5-10.3) mg/dL Total Bilirubin (0.2-1.0) mg/dL AST (10-42) IU/L ALT (10-60) IU/L Alkaline Phosphatase (42-121) IU/L Total Protein (6.7-8.2) g/dL Albumin (3.2-5.5) g/dL Globulin (2.1-4.2) g/dL Albumin/Globulin Ratio (1.0-2.2) Lipase (22-51) U/L Urine Color Urine Clarity (CLEAR) Urine pH (5.0-7.5) PH Ur Specific [place] (1.002-1.030) Urine Protein (NEGATIVE) mg/dL Urine Glucose (UA) (NEGATIVE) mg/dL Urine Ketones (NEGATIVE) mg/dL Urine Occult Blood (NEGATIVE) Urine Nitrite (NEGATIVE) Urine Bilirubin (NEGATIVE) Urine Urobilinogen (NORMAL) E.U./dL Ur Leukocyte Esterase (NEGATIVE) Urine RBC (0-5) /HPF Urine WBC (0-5) /HPF Ur Squamous Epith Cells (<= Few) Amorphous Sediment /LPF Urine Bacteria (None Seen) /HPF Urine Culture Comments Nasal Adenovirus (PCR) Nasal B. parapertussis DNA (PCR) Nasal Coronavir 229E PCR Nasal Coronavir HKU1 PCR Nasal Coronavir NL63 PCR Nasal Coronavir OC43 PCR Nasal Enterovir/Rhinovir PCR Nasal Influenza B PCR Nasal Influenza A PCR Nasal Parainfluen 1 PCR Nasal Parainfluen 2 PCR Nasal Parainfluen 3 PCR Nasal Parainfluen 4 PCR Nasal RSV (PCR) Nasal B.pertussis DNA PCR Nasal C.pneumoniae (PCR) Collins Human Metapneumo PCR Nasal M.pneumoniae (PCR) Nasal SARS-CoV-2 (PCR) ABX Reporting Has patient been on IV antibiotics over the past 48 hours?: No Assessment/Plan - Problem List (1) Cerebellar stroke, acute Impression: She is on Eliquis. This is for atrial fibrillation. There is a risk of conversion to hemorrhagic stroke because of the anticoagulation. Family has been very firm and stating they do not want a repeat echocardiogram. She is in sinus rhythm on EKG. At this time we are not doing carotid Dopplers, or angiogram. Plan: Physical therapy evaluation Speech therapy evaluation PEG tube for dysphagia Permissive hypertension to 180 for 48 to 72 hours. Then resume high blood pressure pills if she can swallow Concerned about dehydration she is not able to eat so we will do lactated Ringer's at 83 cc an hour Home health evaluation for PT, OT, speech for discharge. Family plans on taking her home to [place] as soon as the PEG tube is in place (2) Personal history of colon cancer, stage IV Impression: Patient is not a candidate for further treatment. Nephrostomy tube is in place to help with hydronephrosis where previous tumor was causing obstruction. (3) History of atrial fibrillation Impression: On Coreg. Continue same (4) Chronic congestive heart failure Impression: Unknown what type of congestive heart failure she has. She is on Coreg, Lasix, spironolactone. I am assuming systolic heart failure. P.o. medications are problematic for her. I will resume low-dose Lasix at 20 mg IV push once a day. Qualifiers: Heart failure type: unspecified Qualified Code(s): I50.9 - Heart failure, unspecified
--- NOTE | 2021-05-17 16:33 | CONSULTATION NOTE ---
Surgery Consult - Admit Date Hospital Admission Date: 05/16/21 - Consult Date Consult Date: 05/17/21 Requesting Provider: MD Dusty - Chief Complaint Chief Complaint: Dysphagia after stroke - Home Meds/Allergies Home Medications: Patient History Medication Instructions Recorded Confirmed Apixaban [Eliquis] 2.5 mg PO BID 05/16/21 05/16/21 Spironolactone [Aldactone] 12.5 mg PO DAILY 05/16/21 05/16/21 Torsemide 40 mg PO DAILY 05/16/21 05/16/21 carvediloL [Coreg] 12.5 mg PO BID 05/16/21 05/16/21 Atorvastatin Calcium 40 mg PO QPM 05/17/21 05/17/21 Torsemide 40 mg PO 1400 05/17/21 05/17/21 Torsemide 60 mg PO DAILY 05/17/21 05/17/21 Allergies/Adverse Reactions: Allergies Allergy/AdvReac Type Severity Reaction Status Date / Time No Known Drug Allergies Allergy Verified 05/16/21 18:23 - Vital Signs Vital Signs: Last Vital Signs Temp 36.1 C L 05/17/21 16:23 Pulse 96 05/17/21 15:54 Resp 22 05/17/21 15:54 BP 168/75 H 05/17/21 15:54 Pulse Ox 98 05/17/21 15:54 Intake & Output: Intake & Output 05/14/21 05/15/21 05/16/21 05/17/21 23:59 23:59 23:59 23:59 Intake Total 0 250 Output Total 350 650 Balance -350 -400 - Lab Results Result Diagrams: 05/17/21 04:36 05/17/21 04:36 - Consultation Note Consultation Note: The patient is a pleasant 89-year-old frail elderly female with multiple past medical problems including congestive heart failure, atrial fibrillation with therapeutic Eliquis anticoagulation and with 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 She has been a hospice patient but was removed from hospice by her daughter secondary to concerns regarding nephrostomy tube. Medical records are not available therefore patient's history and background was described by her daughter. The patient presented to [facility] by ambulance around 5:30 PM with focal neurologic abnormalities/likely with cerebrovascular accident. The daughter reported that they had a day trip, drove to [facility] came over by [place]. They were having dinner around 5:30 PM when the patient was noted fainting, she had decreased level of consciousness. She was not able to swallow water, was leaning to the left, became clammy and had very noticeable left facial droop and left-sided arm and leg weakness. Upon presentation to the ER NIH stroke scale was 11. CT scan of the brain did not show acute abnormality. There were laboratory abnormalities which are included below. Case was discussed with covering teleneurologist who recommended admission for stroke work-up which would include MRI and echocardiogram. No CT angiography was recommended as the patient would not be a candidate for any intervention based on her background, anticoagulation and history. Very pleasant and unfortunate 89-year-old lady with history as noted above. Following nonhemorrhagic CVA, she has significant dysphagia and is not able to swallow. I have been consulted regarding possible placement of a percutaneous endoscopic gastrostomy tube. The patient is sitting in a chair at the bedside. Her daughter is with her. We have a very maite discussion regarding whether or not she would like to have a PEG tube. She tells me very plainly that she is not ready to and so she will "have to have it". Physical examination: Remarkably frail and debilitated appearing lady who is in no clear distress. HEENT: Normocephalic and atraumatic. Disconjugate gaze is noted. Lungs: Coarse breath sounds bilaterally. Very weak cough. Heart:Irregularly irregular Abdomen:Soft, scaphoid, active bowel sounds. Assessment/plan: Debilitated and unfortunate lady with end-stage colon cancer and a new CVA resulting in dysphagia. She is not desirous of hospice at this time. She tells me very plainly and in clear language that she is not ready to . We have discussed the risks and benefits of PEG tube placement. She is expressed a desire to have the procedure. It is scheduled for tomorrow afternoon to follow regularly scheduled cases. Estimated time is around 3 PM.
[2021-05-17] MEDS: LACTATED RINGERS 1,000 ML IV SCH (16:58)
[2021-05-18] MEDS: LACTATED RINGERS 1,000 ML IV SCH (04:34)
[2021-05-18] MEDS: SODIUM CHLORIDE FLUSH 0.9% 10 ML SYRINGE IVP SCH ×2 (05:08→11:10)
--- NOTE | 2021-05-18 08:34 | PROVIDER PROGRESS NOTE ---
Assessment/Plan - Current Meds Current Meds: Current Medications Generic Name Dose Route Start Last Admin Trade Name Freq PRN Reason Stop Dose Admin Apixaban 2.5 mg 05/17/21 09:00 05/17/21 20:53 Apixaban 2.5 Mg Tablet PO Not Given BID [facility] Atorvastatin Calcium 40 mg 05/17/21 09:00 05/17/21 13:54 Atorvastatin 40 Mg Tablet PO Not Given DAILY [facility] Carvedilol 12.5 mg 05/16/21 22:47 05/17/21 20:53 Carvedilol 12.5 Mg Tablet PO Not Given BID [facility] Lactated Ringer's 1,000 mls @ 83.333 mls/hr 05/17/21 17:00 05/18/21 04:34 Lr IV 83.333 mls/hr .Q12H [facility] Administration Ondansetron HCl 4 mg 05/16/21 21:16 05/17/21 08:22 Ondansetron 4 Mg/2 Ml Vial IVP 4 mg Q6HR PRN Administration Nausea / Vomiting Sodium Chloride 10 ml 05/17/21 01:00 05/18/21 05:08 Sodium Chloride Flush 0.9% 10 Ml Syringe IVP Not Given 0100,0900,1700 [facility] - Lab Result Fish Bone Diagrams: 05/17/21 04:36 05/17/21 04:36 - Additional Planning My Orders: My Active Orders 05/18/21 09:00 [email or web address] [Rocephin] 1 gm Sodium Chloride 0.9% Minibag [Normal Saline 0.9% Minibag] 100 ml IV DAILY Objective Vital Signs: Vital Signs - 24 hr 05/17/21 05/17/21 05/17/21 14:20 15:54 16:23 Temperature 34.5 C L 36.1 C L Heart Rate [ 96 Radial] Heart Rate [ 95 Sitting] Heart Rate [ 96 Supine] Respiratory 22 Rate Blood Pressure 168/75 H [Right Brachial artery] Blood Pressure 164/72 H [Sitting] Blood Pressure 163/82 H [Supine] O2 Saturation 98 05/18/21 07:09 Temperature 36.4 C L Heart Rate [ 102 H Radial] Heart Rate [ Sitting] Heart Rate [ Supine] Respiratory 18 Rate Blood Pressure 152/73 H [Right Brachial artery] Blood Pressure [Sitting] Blood Pressure [Supine] O2 Saturation 100 Oxygen O2 Source Room air I&O (Last 24 Hrs): Intake and Output Totals x24h 05/16/21 05/17/21 05/18/21 23:59 23:59 23:59 Intake Total 0 747.22 502.78 Output Total 350 650 40 Balance -350 97.22 462.78 - Results Results: Laboratory Results WBC 4.2 x10^3/uL (4.8-10.8) L 05/17/21 04:36 RBC 4.14 10^6/uL (4.20-5.40) L 05/17/21 04:36 Hgb 9.4 g/dL (12.0-16.0) L 05/17/21 04:36 Hct 31.5 % (37.0-47.0) L 05/17/21 04:36 MCV 76.1 fL (81.0-99.0) L 05/17/21 04:36 MCH 22.7 pg (27.0-31.0) L 05/17/21 04:36 MCHC 29.8 g/dL (32.0-36.0) L 05/17/21 04:36 RDW 18.9 % (12.0-15.0) H 05/17/21 04:36 Plt Count 150 10^3/uL (130-450) 05/17/21 04:36 MPV 8.7 fL (7.9-10.8) 05/17/21 04:36 Neut # (Auto) 3.3 10^3/uL (1.5-6.6) 05/17/21 04:36 Lymph # (Auto) 0.7 10^3/uL (1.5-3.5) L 05/17/21 04:36 [place] # (Auto) 0.2 10^3/uL (0.0-1.0) 05/17/21 04:36 Eos # (Auto) 0.0 10^3/uL (0.0-0.7) 05/17/21 04:36 Baso # (Auto) 0.0 10^3/uL (0.0-0.1) 05/17/21 04:36 Absolute Nucleated RBC 0.00 x10^3/uL 05/17/21 04:36 Nucleated RBC % 0.0 /100WBC 05/17/21 04:36 PT 16.8 secs (9.9-12.6) H 05/16/21 18:56 INR 1.5 (0.8-1.2) H 05/16/21 18:56 Sodium 136 mmol/L (135-145) 05/17/21 04:36 Potassium 4.1 mmol/L (3.5-5.0) 05/17/21 04:36 Chloride 102 mmol/L (101-111) 05/17/21 04:36 Carbon Dioxide 22 mmol/L (21-32) 05/17/21 04:36 Anion Gap 12.0 (6-13) 05/17/21 04:36 BUN 44 mg/dL (6-20) H 05/17/21 04:36 Creatinine 1.6 mg/dL (0.4-1.0) H 05/17/21 04:36 Estimated GFR (MDRD) 30 (>89) L 05/17/21 04:36 Glucose 128 mg/dL (70-100) H 05/17/21 04:36 POC Whole Bld Glucose 147 mg/dL (70 - 100) H 05/16/21 18:45 Calcium 9.1 mg/dL (8.5-10.3) 05/17/21 04:36 Total Bilirubin 0.7 mg/dL (0.2-1.0) 05/16/21 18:56 AST 28 IU/L (10-42) 05/16/21 18:56 ALT 19 IU/L (10-60) 05/16/21 18:56 Alkaline Phosphatase 159 IU/L (42-121) H 05/16/21 18:56 Total Protein 8.1 g/dL (6.7-8.2) 05/16/21 18:56 Albumin 3.3 g/dL (3.2-5.5) 05/16/21 18:56 Globulin 4.8 g/dL (2.1-4.2) H 05/16/21 18:56 Albumin/Globulin Ratio 0.7 (1.0-2.2) L 05/16/21 18:56 Lipase 44 U/L (22-51) 05/16/21 18:56 Urine Color BROWN 05/17/21 06:57 Urine Clarity CLOUDY (CLEAR) 05/17/21 06:57 Urine pH 8.5 PH (5.0-7.5) H 05/17/21 06:57 Ur Specific [place] 1.020 (1.002-1.030) 05/17/21 06:57 Urine Protein 100 mg/dL (NEGATIVE) H 05/17/21 06:57 Urine Glucose (UA) NEGATIVE mg/dL (NEGATIVE) 05/17/21 06:57 Urine Ketones NEGATIVE mg/dL (NEGATIVE) 05/17/21 06:57 Urine Occult Blood LARGE (NEGATIVE) H 05/17/21 06:57 Urine Nitrite NEGATIVE (NEGATIVE) 05/17/21 06:57 Urine Bilirubin NEGATIVE (NEGATIVE) 05/17/21 06:57 Urine Urobilinogen 0.2 (NORMAL) E.U./dL (NORMAL) 05/17/21 06:57 Ur Leukocyte Esterase LARGE (NEGATIVE) H 05/17/21 06:57 Urine RBC TNTC /HPF (0-5) H 05/17/21 06:57 Urine WBC >25 /HPF (0-5) H 05/17/21 06:57 Ur Squamous Epith Cells NONE SEEN (<= Few) 05/17/21 06:57 Amorphous Sediment Moderate /LPF 05/17/21 06:57 Urine Bacteria Many /HPF (None Seen) H 05/17/21 06:57 Urine Culture Comments INDICATED 05/17/21 06:57 Nasal Adenovirus (PCR) NOT DETECTED 05/16/21 20:16 Nasal B. parapertussis DNA (PCR) NOT DETECTED 05/16/21 20:16 Nasal Coronavir 229E PCR NOT DETECTED 05/16/21 20:16 Nasal Coronavir HKU1 PCR NOT DETECTED 05/16/21 20:16 Nasal Coronavir NL63 PCR NOT DETECTED 05/16/21 20:16 Nasal Coronavir OC43 PCR NOT DETECTED 05/16/21 20:16 Nasal Enterovir/Rhinovir PCR NOT DETECTED 05/16/21 20:16 Nasal Influenza B PCR NOT DETECTED 05/16/21 20:16 Nasal Influenza A PCR NOT DETECTED 05/16/21 20:16 Nasal Parainfluen 1 PCR NOT DETECTED 05/16/21 20:16 Nasal Parainfluen 2 PCR NOT DETECTED 05/16/21 20:16 Nasal Parainfluen 3 PCR NOT DETECTED 05/16/21 20:16 Nasal Parainfluen 4 PCR NOT DETECTED 05/16/21 20:16 Nasal RSV (PCR) NOT DETECTED 05/16/21 20:16 Nasal B.pertussis DNA PCR NOT DETECTED 05/16/21 20:16 Nasal C.pneumoniae (PCR) NOT DETECTED 05/16/21 20:16 Collins Human Metapneumo PCR NOT DETECTED 05/16/21 20:16 Nasal M.pneumoniae (PCR) NOT DETECTED 05/16/21 20:16 Nasal SARS-CoV-2 (PCR) NOT DETECTED 05/16/21 20:16
[2021-05-18] MEDS ORDERED: cefTRIAXone 1 GM in SODIUM CHLORIDE 0.9% MINIBAG 100 ML IV SCH (09:00)
--- NOTE | 2021-05-18 11:00 | ANESTHESIA ---
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 - Procedure PEG placement Vital Signs: Temp Pulse Resp BP Pulse Ox 36.4 C L 102 H 18 152/73 H 100 05/18/21 07:09 05/18/21 07:09 05/18/21 07:09 05/18/21 07:09 05/18/21 07:09 Height: 5 ft 4 in Weight (kg): 43 kg Body Mass Index: 16.2 BMI Classification: Underweight - NPO >8 hours - Is Patient ?: No - Lab Results Current Lab Results: Laboratory Tests 05/17/21 04:36: Sodium 136, Potassium 4.1, Chloride 102, Carbon Dioxide 22, Anion Gap 12.0, BUN 44 H, Creatinine 1.6 H, Estimated GFR (MDRD) 30 L, Glucose 128 H, Calcium 9.1 05/17/21 04:36: WBC 4.2 L, RBC 4.14 L, Hgb 9.4 L, Hct 31.5 L, MCV 76.1 L, MCH 22.7 L, MCHC 29.8 L, RDW 18.9 H, Plt Count 150, MPV 8.7, Neut # (Auto) 3.3, Lymph # (Auto) 0.7 L, Bracken # (Auto) 0.2, Eos # (Auto) 0.0, Baso # (Auto) 0.0, Absolute Nucleated RBC 0.00, Nucleated RBC % 0.0 05/16/21 18:56: Sodium 135, Potassium 3.8, Chloride 103, Carbon Dioxide 21, Anion Gap 11.0, BUN 47 H, Creatinine 1.7 H, Estimated GFR (MDRD) 28 L, Glucose 145 H, Calcium 9.0, Total Bilirubin 0.7, AST 28, ALT 19, Alkaline Phosphatase 159 H, Total Protein 8.1, Albumin 3.3, Globulin 4.8 H, Albumin/Globulin Ratio 0.7 L, Lipase 44 05/16/21 18:56: PT 16.8 H, INR 1.5 H 05/16/21 18:56: WBC 4.5 L, RBC 3.97 L, Hgb 9.2 L, Hct 30.0 L, MCV 75.6 L, MCH 23.2 L, MCHC 30.7 L, RDW 18.8 H, Plt Count 156, MPV 8.5, Neut # (Auto) 3.2, Lymph # (Auto) 0.8 L, Bracken # (Auto) 0.4, Eos # (Auto) 0.1, Baso # (Auto) 0.0, Absolute Nucleated RBC 0.00, Nucleated RBC % 0.0 05/16/21 18:45: POC Whole Bld Glucose 147 H Lab results reviewed: Yes Fish Bones: 05/17/21 04:36 05/17/21 04:36 Home Medications and Allergies Home Medications: Ambulatory Orders Apixaban [Eliquis] 2.5 mg PO BID 05/16/21 Spironolactone [Aldactone] 12.5 mg PO DAILY 05/16/21 Torsemide 40 mg PO DAILY 05/16/21 carvediloL [Coreg] 12.5 mg PO BID 05/16/21 Atorvastatin Calcium 40 mg PO QPM 05/17/21 Torsemide 40 mg PO 1400 05/17/21 Torsemide 60 mg PO DAILY 05/17/21 Active Medications Acetaminophen (Acetaminophen 325 Mg Tablet) 650 mg PO Q4HR PRN PRN Reason: Pain 1 to 4 Apixaban (Apixaban 2.5 Mg Tablet) 2.5 mg PO BID [facility] Last Admin: 05/17/21 20:53 Dose: Not Given Documented by: Atorvastatin Calcium (Atorvastatin 40 Mg Tablet) 40 mg PO DAILY [facility] Last Admin: 05/17/21 13:54 Dose: Not Given Documented by: Carvedilol (Carvedilol 12.5 Mg Tablet) 12.5 mg PO BID [facility] Last Admin: 05/17/21 20:53 Dose: Not Given Documented by: Lactated Ringer's (Lr) 1,000 mls @ 83.333 mls/hr IV .Q12H [facility] Last Admin: 05/18/21 04:34 Dose: 83.333 mls/hr Documented by: Ceftriaxone Sodium 1 gm/ (Sodium Chloride) 100 mls @ 200 mls/hr IV DAILY [facility] Ondansetron HCl (Ondansetron 4 Mg/2 Ml Vial) 4 mg IVP Q6HR PRN PRN Reason: Nausea / Vomiting Last Admin: 05/17/21 08:22 Dose: 4 mg Documented by: Sodium Chloride (Sodium Chloride Flush 0.9% 10 Ml Syringe) 10 ml IVP PRN PRN PRN Reason: NEEDED PER PROVIDER ORDERS Sodium Chloride (Sodium Chloride Flush 0.9% 10 Ml Syringe) 10 ml IVP 0100,0900,1700 [facility] Last Admin: 05/18/21 05:08 Dose: Not Given Documented by: Apixaban [Eliquis] 2.5 mg PO BID 05/16/21 Spironolactone [Aldactone] 12.5 mg PO DAILY 05/16/21 Torsemide 40 mg PO DAILY 05/16/21 carvediloL [Coreg] 12.5 mg PO BID 05/16/21 Atorvastatin Calcium 40 mg PO QPM 05/17/21 Torsemide 40 mg PO 1400 05/17/21 Torsemide 60 mg PO DAILY 05/17/21 Allergies/Adverse Reactions: Allergies Allergy/AdvReac Type Severity Reaction Status Date / Time No Known Drug Allergies Allergy Verified 05/16/21 18:23 Anes History & Medical History - Anesthetic History Anesthesia Complications: reports: No previous complications Family history of Anesthesia Complications: Denies Family history of Malignant Hyperthermia: Denies - Medical History Cardiovascular: reports: Congestive heart failure, Hypertension, High cholesterol, Coronary artery disease Pulmonary: reports: None Gastrointestinal: reports: Other (dysphagia s/p stroke) Neuro: reports: CVA (left sided weakness) Smoking Status: Never smoker - Surgical History Cardiothoracic: reports: Coronary stent Other Past Surgical History: nephrostomy tube in place Exam General: Alert, Oriented x3, Cooperative, No acute distress Dental: Dentures full Upper Mouth Openin Fingerbreadth Neck Mobility: Normal Mallampati classification: II Respiratory: Lungs clear, Normal breath sounds, No respiratory distress, No accessory muscle use Cardiovascular: Regular rate, Normal S1, Normal S2, No murmurs Plan Anesthesia Type: General, MAC (discussed with patient and daughter) Consent for Procedure(s) Verified and Reviewed: Yes Code Status: Do Not Attempt Resuscitation (Discussed with patient and daughter. No compressions or defibrillation. OK with intubation if needed for procedure) ASA classification: 3-Severe systemic disease Is this case an emergency?: No
[2021-05-18] MEDS: ATORVASTATIN 40 MG TABLET PO SCH (11:09)
[2021-05-18] MEDS: carvediloL 12.5 MG TABLET PO SCH (11:09)
[2021-05-18] MEDS: APIXABAN 2.5 MG TABLET PO SCH (11:09)
--- NOTE | 2021-05-18 12:02 | DISCHARGE SUMMARY ---
Discharge Summary Admit Date: 05/16/21 Discharge Date: 05/18/21 Discharging Provider: Marcelo Julien Code Status: Do Not Attempt Resuscitation Condition at Discharge: Stable Discharge Disposition: 06 Home Health Service - DIAGNOSES Admission Diagnoses: Cerebellar stroke, acute Patient history of colon cancer, stage IV with History of atrial fibrillation Chronic congestive heart failure Discharge Diagnoses with Status of Each Condition: Cerebellar stroke, acute: She has balance difficulties and dysphagia. 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 Rate controlled. On coreg and eliquis Chronic congestive heart failure. 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 Medical records are not available therefore patient's history and background was described by her daughter. The patient presented to [facility] ER by ambulance around 5:30 PM with focal neurologic abnormalities/likely with cerebrovascular accident. The daughter reported that they had a day trip, drove to [facility] [place] came over by [employer]. They were having dinner around 5:30 PM when the patient was noted fainting, she had decreased level of consciousness. She was not able to swallow water, was leaning to the left, became clammy and had very noticeable left facial droop and left-sided arm and leg weakness. Upon presentation to the ER NIH stroke scale was 11. CT scan of the brain did not show acute abnormality. There were laboratory abnormalities which are included below. Case was discussed with covering teleneurologist who recommended admission for stroke work-up which would include MRI and echocardiogram. No CT angiography was recommended as the patient would not be a candidate for any intervention based on her background, anticoagulation and history. Advance care planning discussion was started. Patient's background, chronic medical problems, functional status, current symptoms and work-up were discussed in detail. Patient's primary decision maker is her daughter who was at the bedside. She is an museum exhibit technician and understood the context. She stated that her mother should be treated mainly according to comfort. She wishes no escalation of the care and details of care plan are listed at assessment and plan. - HOSPITAL COURSE Hospital Course: Patient was admitted to the [facility] floor. Permissive hypertension was allowed for 24 hours. Patient was made n.p.o. because she was deemed to be a significant aspiration risk. Residual deficit was difficultly with balance. She could ambulate using a walker and one assist. She also had dysphagia as another residual deficit. She was seen by speech therapy who determined her to be a significant aspiration risk and advised not to have any oral intake. Her daughter declined having an echocardiogram done. She had an MRI of the brain done on 05/17/21 which showed age-related volume loss and severe small vessel ischemic change. Also noted acute infarct involving the inferior left cerebellar hemisphere and left lateral medulla. The cerebellar infarct is in the left posterior inferior cerebellar artery territory. This is nonhemorrhagic. There is subglottic edema without significant mass-effect on the ventricular system. No evidence of hemorrhage. Patient's daughter requested a PEG tube placement. This was done by Dr. Renetta Castano on 05/18/2021 prior to discharge. Patient's daughter was instructed on how to administer supplemental nutrition such as Ensure via the PEG tube as well as medication with flushes before and after administration. Documentation has been sent to insurance company and infusion centers regarding tube feeds. The patient will need tube feeds for more than 90 days. With regards to stage IV colon cancer with mets to liver, the patient's oncologist Dr. Shanika Shelton Stated that the patient is no longer receiving active treatment. The patient also had a urinary tract infection according to urinalysis. K lebsiella pneumoniae grew. It was pansensitive. She was discharged home On Cipro to 50 mg p.o. twice daily x3 days. The rest of her medications were resumed at home dose upon discharge. She was discharged home with home health PT/OT/speech. - ALLERGIES Allergies/Adverse Reactions: Allergies Allergy/AdvReac Type Severity Reaction Status Date / Time No Known Drug Allergies Allergy Verified 05/16/21 18:23 - MEDICATIONS Home Medications: Ambulatory Orders Medication Instructions Recorded Confirmed Apixaban [Eliquis] 2.5 mg PO BID 05/16/21 05/16/21 Spironolactone [Aldactone] 12.5 mg PO DAILY 05/16/21 05/16/21 Torsemide 40 mg PO DAILY 05/16/21 05/16/21 carvediloL [Coreg] 12.5 mg PO BID 05/16/21 05/16/21 Atorvastatin Calcium 40 mg PO QPM 05/17/21 05/17/21 Torsemide 40 mg PO 1400 05/17/21 05/17/21 Torsemide 60 mg PO DAILY 05/17/21 05/17/21 Ciprofloxacin [Cipro] 250 mg PO Q12H 3 Days #6 tablet 05/18/21 - PHYSICAL EXAM AT DISCHARGE General Appearance: positive: No acute distress, Alert, Other (Frail) Eyes Bilateral: positive: Other (Strabismus noted. Conjunctiva appeared stretched, red and boggy) ENT: positive: No signs of dehydration Neck: positive: No JVD, Trachea midline Respiratory: positive: Chest non-tender, No respiratory distress, Breath sounds nml. negative: Wheezes, Rales, Rhonchi Cardiovascular: positive: Irregularly irregular Abdomen: positive: Non-tender, No organomegaly, No distention. negative: Guarding, Rebound Skin: positive: Warm, Dry, Pallor Extremities: positive: Non-tender, Full ROM, Nml appearance, No pedal edema Neurologic/Psychiatric: positive: Oriented x3, Other (balance difficulty, Dysphagia, Extraocular movements with left gaze deviation) - LABS Result Diagrams: 05/17/21 04:36 05/17/21 04:36 - TIME SPENT Time Spent in Discharge (Minutes): 20
--- NOTE | 2021-05-18 12:03 | Discharge Plan ---
Discharge Plan Problem Reviewed?: Yes Disposition: Home Health Service Condition: Stable Diet: Cardiac (Via feeding tube and per Speech therapy recs) Activity Restrictions: Per therapy recs Assistance Devices: Walker (And with assist per physical therapy) Health Concerns: You were admitted on 05/16/21 with focal neurologic deficits which involved left-sided facial droop and weakness. Subsequent work-up included an MRI of the brain which showed a left cerebellar infarct. Residual deficits involved difficulties with swallowing and problems with your balance. He was seen by physical therapy, Occupational Therapy and speech. You are at a significant risk of aspiration. You may follow-up with your primary care physician for a prescription for a suctioning device. You had a PEG tube placed prior to discharge Through which you could receive tube feeds. You will require a walker and assistance to get around. You are being discharged home with home health PT/OT/speech therapy. Your home medications were resumed at home dose The above was explained to you with your daughter at bedside. You are agreeable to the plan. No Smoking: If you smoke, Please STOP! Call for help. Follow-up with: MARIUSZ ESPITIA MD [Primary Care Provider] -
[2021-05-18] MEDS: GADOBUTROL 7.5 MMOL/7.5 ML VIAL IVP ONE (13:24)
[2021-05-18] MEDS ORDERED: PROPOFOL 200 MG/20 ML VIAL IVP ONE ×2 (14:26→14:40)
[2021-05-18] MEDS ORDERED: LIDOCAINE 1% 50 ML MDV SUBQ ONE (14:42)
--- NOTE | 2021-05-18 15:01 | ANESTHESIA POST OP EVALUATION ---
Anesthesia Post Eval - Post Anesthesia Eval Vitals: Last Vital Signs Temp 36.4 C L 05/18/21 07:09 Pulse 104 H 05/18/21 10:45 Resp 18 05/18/21 07:09 BP 157/81 H 05/18/21 10:45 Pulse Ox 100 05/18/21 07:09 CV Function Including HR & BP: Stable Pain Control: Satisfactory Nausea & Vomiting: Negative Mental Status: Baseline Respiratory Status: Airway Patent Hydration Status: Satisfactory Anesthesia Complications: None
[2021-05-18] MEDS ORDERED: ATORVASTATIN 40 MG TABLET PO SCH (17:00)
[2021-05-18] MEDS ORDERED: APIXABAN 2.5 MG TABLET PO SCH (17:00)
[2021-05-18] MEDS ORDERED: carvediloL 12.5 MG TABLET PO SCH (17:00)
[2021-05-18 18:51] VITALS: BP 140/52
== END 2021-05-18 19:02 | disposition home health service (06) | DRG 65 ==
LOC: ED 18:15 → MS2 21:16
PROVIDERS: ADMIT Internal Medicine; ATTEND Internal Medicine
PROC: 0DH63UZ Insertion of Feeding Device into Stomach, Percutaneous Approach (ICD-10-PCS; principal; 2021-05-18 14:15)
DX: M62.81 Muscle weakness (generalized) (principal); R29.810 Facial weakness; R47.01 Aphasia; R41.0 Disorientation, unspecified; R29.711 NIHSS score 11; I10 Essential (primary) hypertension; E78.00 Pure hypercholesterolemia, unspecified; I48.91 Unspecified atrial fibrillation; I63.9 Cerebral infarction, unspecified; C18.9 Malignant neoplasm of colon, unspecified; C78.7 Secondary malignant neoplasm of liver and intrahepatic bile duct; Z20.822 Contact with and (suspected) exposure to COVID-19; I38 Endocarditis, valve unspecified; E46 Unspecified protein-calorie malnutrition; Z68.1 Body mass index [BMI] 19.9 or less, adult; N39.0 Urinary tract infection, site not specified; I13.0 Hypertensive heart and chronic kidney disease with heart failure and stage 1 through stage 4 chronic kidney disease, or unspecified chronic kidney disease; I69.392 Facial weakness following cerebral infarction; R13.10 Dysphagia, unspecified; N19 Unspecified kidney failure; B96.1 Klebsiella pneumoniae [K. pneumoniae] as the cause of diseases classified elsewhere; I48.0 Paroxysmal atrial fibrillation; I50.9 Heart failure, unspecified; D64.9 Anemia, unspecified; D70.9 Neutropenia, unspecified; E78.5 Hyperlipidemia, unspecified; Z66 Do not resuscitate; Z51.5 Encounter for palliative care; Z79.01 Long term (current) use of anticoagulants; Z79.899 Other long term (current) drug therapy
CPT/HCPCS: 36415; 70450; 70553; 80048; 80053; 81001; 83690; 85025; 85610; 87077; 87086; 87181; 87631; 92610; 93005; 97163; 97166; 97530; 99285; A9270; A9585; J7120; 0202U